=== PATIENT | male | born 1960 | race Caucasian/White ===

== ENCOUNTER → 2021-03-03 10:45 | Outpatient (BNVA) | payer OTHER, SELFPAY | PROVIDERS: Family Provider Nurse Practitioner Family; Visit Provider Nurse Practitioner Family | DX: R42 Dizziness and giddiness (principal); Z72.0 Tobacco use; L57.0 Actinic keratosis; Z12.11 Encounter for screening for malignant neoplasm of colon; M25.562 Pain in left knee; G89.29 Other chronic pain; Z00.00 Encounter for general adult medical examination without abnormal findings | CPT/HCPCS: 80053; 80061; 83880; 84443; 85025 ==